=== PATIENT | female | born 1955 | race Caucasian/White ===

== ENCOUNTER → 2023-08-25 08:24 | Outpatient (REF) | payer MEDICARE, OTHER, SELFPAY | LOC: WDC 08:24 | PROVIDERS: ATTENDING PHYSICIAN Obstetrics & Gynecology; FAMILY PHYSICIAN Student in an Organized Health Care Education/Training Program | DX: Z12.31 Encounter for screening mammogram for malignant neoplasm of breast (principal) | CPT/HCPCS: 77063; 77067 ==

== ENCOUNTER → 2023-09-08 15:07 | Outpatient (REF) | payer MEDICARE, OTHER, SELFPAY | LOC: RAD 15:07 | PROVIDERS: ATTENDING PHYSICIAN Internal Medicine | DX: R60.0 Localized edema (principal) | CPT/HCPCS: 93971 ==

== ENCOUNTER → 2023-10-18 07:04 | Outpatient (REF) | payer MEDICARE, OTHER, SELFPAY ==
[2023-10-18] MEDS: LEXISCAN 0.400000000000000022 MG IV (09:26)
[2023-10-18 11:53] LABS: % Basophils 0.8 % (0-2); % Eosinophils 3.3 % (0-6); % Immature Granulocytes 0.2 % (0-0.5); % Lymphocytes 31.2 % (20.5-51.1); % Monocytes 8.9 % (1.7-9.3); % Neutrophils 55.6 % (42.2-75.2); Absolute Basophils 0.1 10^3/uL (0-0.2); Absolute Eosinophils 0.3 10^3/uL (0-0.7); Absolute Lymphocytes 2.8 10^3/uL (1.2-3.4); Absolute Monocytes 0.8 10^3/uL (0.1-0.6); Hematocrit 39.9 % (37.0-47.0); Mean Corp Hgb Conc. 32.6 g/dL (33.0-37.0); Mean Corpuscular Hgb 30.2 pg (27.0-31.0); Mean Corpuscular Volume 92.6 fL (81.0-99.0); Mean Platelet Volume 9.5 fL (7.4-10.4); Nucleated Red Blood Cells % 0 %; Platelet Count 345 10^3/uL (130-400); Red Blood Cell Count 4.31 10^6/uL (4.20-5.40); Red Cell Dist. Width 15.2 % (11.5-14.5)
[2023-10-18 13:47] LABS: ALT (SGPT) 22 U/L (0-35); AST (SGOT) 35 U/L (14-36); Albumin 4.6 g/dl (3.5-5.0); Alkaline Phosphatase 80 U/L (38-126); Blood Urea Nitrogen 21 mg/dl (7-17); Calcium 10.5 mg/dl (8.4-10.2); Carbon Dioxide 29 mmol/L (22-30); Chloride 99 mmol/L (98-107); Glucose 102 mg/dl (70-99); Potassium 4.5 mmol/L (3.5-5.1); Sodium 142 mmol/L (135-145); Total Bilirubin 0.6 mg/dl (0.2-1.3); Total Protein 7.3 g/dl (6.3-8.2); eGFR > 60.00
[2023-10-18 14:19] LABS: TSH Reflex To Free T4 3.98 uIU/ml (0.47-4.68)
== END ==
LOC: RCS 07:04
PROVIDERS: ATTENDING PHYSICIAN Internal Medicine Cardiovascular Disease; FAMILY PHYSICIAN Student in an Organized Health Care Education/Training Program; REFERRING PHYSICIAN Orthopaedic Surgery Sports Medicine
DX: I25.10 Atherosclerotic heart disease of native coronary artery without angina pectoris (principal); E78.5 Hyperlipidemia, unspecified; I48.0 Paroxysmal atrial fibrillation; E78.00 Pure hypercholesterolemia, unspecified; I10 Essential (primary) hypertension; Z01.818 Encounter for other preprocedural examination
CPT/HCPCS: 36415; 78452; 80053; 84443; 85025; 93017; A9500; J2785

== ENCOUNTER → 2023-12-27 07:51 | Outpatient (REF) | payer MEDICARE, OTHER, SELFPAY | LOC: MRI 3T 07:51 | PROVIDERS: ATTENDING PHYSICIAN Student in an Organized Health Care Education/Training Program | DX: R41.3 Other amnesia (principal); R26.89 Other abnormalities of gait and mobility; R42 Dizziness and giddiness | CPT/HCPCS: 70553; A9575 ==

== ENCOUNTER → 2024-01-17 14:43 | Outpatient (REF) | payer MEDICARE, OTHER, SELFPAY | LOC: CLAB 14:43 | PROVIDERS: ATTENDING PHYSICIAN Student in an Organized Health Care Education/Training Program; REFERRING PHYSICIAN Specialist | DX: K11.8 Other diseases of salivary glands (principal); N62 Hypertrophy of breast | CPT/HCPCS: 76536 ==

== ENCOUNTER → 2024-01-26 11:51 | Outpatient (REF) | payer MEDICARE, OTHER, SELFPAY | LOC: RAD 11:51 | PROVIDERS: ATTENDING PHYSICIAN Student in an Organized Health Care Education/Training Program; REFERRING PHYSICIAN Internal Medicine Gastroenterology | DX: K59.00 Constipation, unspecified (principal) | CPT/HCPCS: 74018 ==

== ENCOUNTER → 2024-03-12 10:33 | Outpatient (REF) | payer MEDICARE, OTHER, SELFPAY | LOC: RAD 10:33 | PROVIDERS: ATTENDING PHYSICIAN Internal Medicine Hematology & Oncology; FAMILY PHYSICIAN Student in an Organized Health Care Education/Training Program | DX: Z87.891 Personal history of nicotine dependence (principal) | CPT/HCPCS: 71271 ==

== ENCOUNTER → 2024-03-21 08:09 | Outpatient (REF) | payer MEDICARE, OTHER, SELFPAY ==
[2024-03-21 08:59] LABS: % Basophils 0.7 % (0-2); % Eosinophils 3.3 % (0-6); % Immature Granulocytes 0.3 % (0-0.5); % Lymphocytes 32.3 % (20.5-51.1); % Monocytes 10.5 % (1.7-9.3); % Neutrophils 52.9 % (42.2-75.2); Absolute Basophils 0.1 10^3/uL (0-0.2); Absolute Eosinophils 0.2 10^3/uL (0-0.7); Absolute Lymphocytes 2.2 10^3/uL (1.2-3.4); Absolute Monocytes 0.7 10^3/uL (0.1-0.6); Absolute Neutrophils 3.6 10^3/uL (1.4-6.5); Hematocrit 36.7 % (37.0-47.0); Hemoglobin 11.8 g/dL (12.0-16.0); Mean Corp Hgb Conc. 32.2 g/dL (33.0-37.0); Mean Corpuscular Hgb 29.9 pg (27.0-31.0); Mean Corpuscular Volume 93.1 fL (81.0-99.0); Mean Platelet Volume 9.6 fL (7.4-10.4); Nucleated Red Blood Cells % 0 %; Platelet Count 265 10^3/uL (130-400); Red Blood Cell Count 3.94 10^6/uL (4.20-5.40); Red Cell Dist. Width 17.1 % (11.5-14.5); White Blood Cell Count 6.9 10^3/uL (4.8-10.8)
[2024-03-21 09:29] LABS: C-Reactive Protein < 5.00 mg/L (0.0-10.00)
[2024-03-21 10:07] LABS: Ferritin 57.8 ng/ml (11.1-264.0)
[2024-03-21 10:08] LABS: Iron 69 ug/dl (37-170)
[2024-03-21 10:19] LABS: Percent Saturation 19 % (20-50); Total Iron Binding Capacity 352 ug/dl (265-497)
[2024-03-21 10:42] LABS: Erythrocyte Sed Rate 23 mm/hour (0-20)
== END ==
LOC: REG 08:09
PROVIDERS: ATTENDING PHYSICIAN Internal Medicine Hematology & Oncology; FAMILY PHYSICIAN Student in an Organized Health Care Education/Training Program; REFERRING PHYSICIAN Orthopaedic Surgery Sports Medicine
DX: Z96.652 Presence of left artificial knee joint (principal); I82.402 Acute embolism and thrombosis of unspecified deep veins of left lower extremity; R53.82 Chronic fatigue, unspecified; D50.9 Iron deficiency anemia, unspecified
CPT/HCPCS: 36415; 82728; 83540; 83550; 85025; 85652; 86140

== ENCOUNTER → 2024-03-28 11:28 | Outpatient (REF) | payer MEDICARE, OTHER, SELFPAY ==
[2024-03-28 11:54] LABS: % Basophils 0.8 % (0-2); % Eosinophils 4.8 % (0-6); % Immature Granulocytes 0.5 % (0-0.5); % Lymphocytes 31.2 % (20.5-51.1); % Monocytes 9.2 % (1.7-9.3); % Neutrophils 53.5 % (42.2-75.2); Absolute Basophils 0.1 10^3/uL (0-0.2); Absolute Eosinophils 0.4 10^3/uL (0-0.7); Absolute Lymphocytes 2.4 10^3/uL (1.2-3.4); Absolute Monocytes 0.7 10^3/uL (0.1-0.6); Absolute Neutrophils 4.1 10^3/uL (1.4-6.5); Hemoglobin 12.2 g/dL (12.0-16.0); Mean Corp Hgb Conc. 32.1 g/dL (33.0-37.0); Mean Corpuscular Hgb 29.3 pg (27.0-31.0); Mean Corpuscular Volume 91.1 fL (81.0-99.0); Nucleated Red Blood Cells % 0 %; Platelet Count 322 10^3/uL (130-400); Red Blood Cell Count 4.17 10^6/uL (4.20-5.40); Red Cell Dist. Width 17.2 % (11.5-14.5); White Blood Cell Count 7.6 10^3/uL (4.8-10.8)
== END ==
LOC: REG 11:28
PROVIDERS: ATTENDING PHYSICIAN Internal Medicine Hematology & Oncology; FAMILY PHYSICIAN Student in an Organized Health Care Education/Training Program
DX: I82.402 Acute embolism and thrombosis of unspecified deep veins of left lower extremity (principal); R53.82 Chronic fatigue, unspecified; D50.9 Iron deficiency anemia, unspecified
CPT/HCPCS: 36415; 85025

== ENCOUNTER → 2024-04-06 07:16 | Outpatient (REF) | payer MEDICARE, OTHER, SELFPAY ==
[2024-04-06 08:10] LABS: % Eosinophils 4.1 % (0-6); % Immature Granulocytes 0.6 % (0-0.5); % Lymphocytes 35.2 % (20.5-51.1); % Neutrophils 49.1 % (42.2-75.2); Absolute Basophils 0.1 10^3/uL (0-0.2); Absolute Eosinophils 0.3 10^3/uL (0-0.7); Absolute Immature Granulocytes 0.1 10^3/uL (0-0.05); Absolute Lymphocytes 2.8 10^3/uL (1.2-3.4); Absolute Monocytes 0.8 10^3/uL (0.1-0.6); Absolute Neutrophils 3.8 10^3/uL (1.4-6.5); Hematocrit 36.1 % (37.0-47.0); Hemoglobin 11.4 g/dL (12.0-16.0); Mean Corp Hgb Conc. 31.6 g/dL (33.0-37.0); Mean Corpuscular Hgb 29.4 pg (27.0-31.0); Mean Platelet Volume 9.3 fL (7.4-10.4); Nucleated Red Blood Cells % 0 %; Platelet Count 288 10^3/uL (130-400); Red Blood Cell Count 3.88 10^6/uL (4.20-5.40); Red Cell Dist. Width 17.4 % (11.5-14.5); White Blood Cell Count 7.8 10^3/uL (4.8-10.8)
[2024-04-06 08:36] LABS: ALT (SGPT) 17 U/L (0-35); AST (SGOT) 26 U/L (14-36); Albumin 4.3 g/dl (3.5-5.0); Alkaline Phosphatase 71 U/L (38-126); Amylase 73 U/L (30-110); Blood Urea Nitrogen 23 mg/dl (7-17); Calcium 9.7 mg/dl (8.4-10.2); Carbon Dioxide 29 mmol/L (22-30); Chloride 101 mmol/L (98-107); Direct Bilirubin 0.3 mg/dl (0.0-0.4); Glucose 99 mg/dl (70-99); HDL Cholesterol 72 mg/dl; LDL Cholesterol, Calculated 58 mg/dl; Lipase 137 U/L (23-300); Potassium 4.8 mmol/L (3.5-5.1); Sodium 142 mmol/L (135-145); Total Bilirubin 0.5 mg/dl (0.2-1.3); Total Cholesterol 152 mg/dl (50-199); Total Protein 6.5 g/dl (6.3-8.2); Triglyceride 113 mg/dl (10-149); Very Low Density Lipoprotein 22 mg/dl (0-30); eGFR > 60.00
[2024-04-06 08:56] LABS: TSH 4.84 uIU/ml (0.47-4.68)
[2024-04-06 09:00] LABS: Depakane 70.5 ug/ml (50.0-120.0)
== END ==
LOC: REG 07:16
PROVIDERS: ATTENDING PHYSICIAN Psychiatry & Neurology Psychiatry; FAMILY PHYSICIAN Student in an Organized Health Care Education/Training Program
DX: F41.1 Generalized anxiety disorder (principal); F31.9 Bipolar disorder, unspecified; E03.9 Hypothyroidism, unspecified; E78.5 Hyperlipidemia, unspecified
CPT/HCPCS: 36415; 80053; 80061; 80164; 82150; 82248; 83690; 84443; 85025

== ENCOUNTER → 2024-04-16 09:25 | Outpatient (REF) | payer MEDICARE, OTHER, SELFPAY | LOC: DHVS 09:25 | PROVIDERS: ATTENDING PHYSICIAN Surgery Vascular Surgery; FAMILY PHYSICIAN Student in an Organized Health Care Education/Training Program | DX: I77.9 Disorder of arteries and arterioles, unspecified (principal) | CPT/HCPCS: 93922; 93925; 93978 ==

== ENCOUNTER 2024-05-25 11:23 | Emergency (ER) | payer MEDICARE, OTHER, SELFPAY ==
[2024-05-25 11:25] VITALS: BP 114/71
[2024-05-25 11:26] VITALS: BP 114/71; BMI 28.9
[2024-05-25 11:44] LABS: % Basophils 0.5 % (0-2); % Eosinophils 1.5 % (0-6); % Immature Granulocytes 0.7 % (0-0.5); % Neutrophils 60.3 % (42.2-75.2); Absolute Eosinophils 0.1 10^3/uL (0-0.7); Absolute Immature Granulocytes 0.1 10^3/uL (0-0.05); Absolute Monocytes 0.8 10^3/uL (0.1-0.6); Absolute Neutrophils 4.5 10^3/uL (1.4-6.5); Hematocrit 41.8 % (37.0-47.0); Hemoglobin 13.8 g/dL (12.0-16.0); Mean Corpuscular Hgb 31.7 pg (27.0-31.0); Mean Corpuscular Volume 96.1 fL (81.0-99.0); Mean Platelet Volume 9.7 fL (7.4-10.4); Nucleated Red Blood Cells % 0 %; Platelet Count 204 10^3/uL (130-400); Red Blood Cell Count 4.35 10^6/uL (4.20-5.40); Red Cell Dist. Width 15.3 % (11.5-14.5); White Blood Cell Count 7.5 10^3/uL (4.8-10.8)
[2024-05-25 12:02] LABS: ALT (SGPT) 17 U/L (0-35); AST (SGOT) 25 U/L (14-36); Albumin 4.3 g/dl (3.5-5.0); Alkaline Phosphatase 52 U/L (38-126); Blood Urea Nitrogen 28 mg/dl (7-17); Calcium 9.7 mg/dl (8.4-10.2); Carbon Dioxide 21 mmol/L (22-30); Chloride 106 mmol/L (98-107); Estimated Creatinine Clearance 52 ml/min; Glucose 112 mg/dl (70-99); Sodium 141 mmol/L (135-145); Total Bilirubin 0.5 mg/dl (0.2-1.3); Total Protein 6.6 g/dl (6.3-8.2); eGFR > 60.00
[2024-05-25] MEDS: NSS 1000 IV (12:29)
--- NOTE | 2024-05-25 12:44 | ED.GENMED ---
History of Present Illness
General
Chief Complaint: Fainting/Passed Out
Time Seen by Provider: 05/25/24 11:36
History of Present Illness
History of Present Illness:
69-year-old female with history of bipolar disorder, COPD, hypertension, hyperlipidemia presenting to the emergency department after a syncopal episode. Patient had witnessed syncopal episode at the [employer] prior to arrival. Patient allegedly fell to
the ground, however witnessed, without head strike. Patient notes prior to episode, she felt lightheaded like she was going to pass out. Denies prodromal chest pain or difficulty breathing. Denies passing out in the past, however did not eat or
drink anything this morning prior to going to the [employer]. Presently reporting fatigue, otherwise denies chest pain, difficulty breathing, abdominal pain, fever or recent illness, weakness or numbness to extremities. She denies additional acute
medical complaints
Past History
Past History
ED Past Medical History: Arrthythmia (afib), COPD, GERD, HTN, Hypercholesterolemia, Psychiatric (Bipolar disorder) and Other (Fibromyalgia,' Vascular problems'); Negative Asthma or NIDDM
ED Past Surgical History: Appendectomy, Cholecystectomy, Gynecological (Total Hysterectomy) and Other (Clot removed form right leg, Numbness from knee up to thigh constant)
Social History
Tobacco: Former smoker
Alcohol: Occasional
Drug: None
Personal:
Living: alone
Employment: Employed
Family History
Family History: Other
Phy Exam
Physical Exam
Physical Exam:
General: Well-appearing, nontoxic and in no acute distress, dry mucus membranes
HEENT: protecting airway
Neck: appears supple
CV: Normal heart rate, regular rhythm
Resp: No accessory muscle use, no increased work of breathing, lungs clear to auscultation bilaterally
Abd: Soft and non-distended, no tenderness to palpation
Extremities: No deformities, no swelling, no erythema, pulses and sensation intact
Neuro: alert, no focal neurologic deficit
: deferred
Rectal: deferred
Psych: Normal affect
Skin: Intact
Course
Orders/Labs/Results
Orders:
Orders
05/25/24 11:25
EKG [Electrocardiogram (*1)] Urgent
Reason for Study: Vertigo / Dizzy
EKG- Treatment ONCE
05/25/24 11:28
CBC/With Diff [Complete Blood Count/With Diff] Urgent
CMP [Comprehensive Metabolic Panel] Urgent
05/25/24 12:08
0.9% Sodium Chloride 1000 ml [Nss] 1,000 ml IV BOLUS
05/25/24 12:20
Troponin I Urgent
Abnormal Lab Results
05/25/24
11:28
MCH 31.7 H pg
(27.0-31.0)
RDW 15.3 H %
(11.5-14.5)
Abs Immat Gran (auto) 0.1 H 10^3/uL
(0-0.05)
Absolute Monos (auto) 0.8 H 10^3/uL
(0.1-0.6)
Immature Gran % 0.7 H %
(0-0.5)
Monocytes % 10.0 H %
(1.7-9.3)
Carbon Dioxide 21 L mmol/L
(22-30)
BUN 28 H mg/dl
(7-17)
Glucose 112 H mg/dl
(70-99)
05/25/24 11:28
05/25/24 11:28
Vital Signs
Initial and Last Documented VS:
Initial Vital Signs
BP
114/71
05/25/24 11:25
Last Documented Vital Signs
Temp Pulse Resp BP Pulse Ox
97.6 F 82 15 114/71 89
05/25/24 11:26 05/25/24 12:46 05/25/24 12:52 05/25/24 11:26 05/25/24 12:46
MDM/Problems Addressed
MDM/Problems Addressed:
69-year-old female with history of bipolar disorder, hypertension, hyperlipidemia, COPD presenting after syncopal episode. Vital signs on arrival are normal.
On exam patient is well-appearing, no acute distress or discomfort. Overall benign cardiac, pulmonary, neurologic exam. She is afebrile, nontoxic. She does have dry mucous membranes. EKG obtained, nonischemic, no arrhythmia. Lower suspicion for
acute cardiac event, without prodromal cardiac symptoms. Suspect possible vasovagal quality to symptoms, did not eat or drink anything today, appears dry on exam. Plan for screening laboratory analysis. Will administer IV fluids and reassess for
improvement.
13:30 - Labs are unremarkable. On reassessment after fluids and oral hydration, patient is reporting symptom improvement. Patient ambulated steadily. At this time feel that she is stable for discharge. Strict return precautions communicated and
patient verbalized understanding
*EKG
Interpreted by ED Provider?: Yes
EKG Intrepretation Date: 05/25/24
EKG Intrepretation Time: 12:48
Interpretation: normal
Comparison EKG: no changes (06/08/23)
Heart Rate: 66
Rate: normal
Rhythm: sinus
[place]: normal axis
Interval: normal interval
QRS Pattern: normal QRS
Ischemia: no ischemia
*Critical Care Note
Total Time (30-74mins, 75-104mins- exclusive of procedures): Not Applicable
ED Attending Note
-
Portions of this chart may have been created with voice recognition software.� Occasional wrong word or��sound alike� substitutions may have occurred due to the inherent limitations of voice recognition software.
Discharge Plan
Departure
Prescriptions:
No Action
olanzapine 5 mg Tablet
5 mg PO BID Qty: 0
pantoprazole 40 MG tablet,delayed release (DR/EC)
40 mg PO DAILY
finasteride 5 MG tablet
5 mg PO DAILY
bupropion HCl 200 MG tablet sustained-release 12 hr
200 mg PO DAILY
sennosides [senna] 1 TABLET tablet
2 tab PO DAILY
amlodipine 5 mg Tablet
5 mg PO DAILY
rosuvastatin [Crestor] 40 mg Tablet
40 mg PO DAILY
Eliquis 5 mg Tablet
5 mg PO BID
alendronate 70 mg Tablet
70 mg PO WE
clonazepam 0.5 mg Tablet
0.5 mg PO DAILY
Patient Comments:
04/28/2023: last filled 04/25/23, 90 tabs for 30 days from [facility]
clonazepam 0.5 mg Tablet
1 mg PO HS
Patient Comments:
04/28/2023: last filled 04/25/23, 90 tabs for 30 days from [facility]
polyethylene glycol 3350 [Miralax] 17 gram/dose Powder
4 g PO QPM
Rx Instructions:
2 teaspoons daily
fluoxetine 20 mg capsule
20 mg PO DAILY
oxycodone 10 mg tablet
10 mg PO DAILY
Patient Comments:
04/28/2023: last filled 04/13/23, 75 tabs for 30 days from [facility]
Rx Instructions:
Can take up to 3x daily
lurasidone 120 mg tablet
120 mg PO QPM
Patient Comments:
04/28/2023: last filled 02/24/23, 90 tabs for 90 days from [facility]
gabapentin 100 mg capsule
300 mg PO TID
alprazolam 1 mg tablet
1 mg PO HS PRN (Reason: anxiety) Qty: 4 0RF
Referrals:
Shirley Marx MD [Family Provider] -
Interventions
Interventions:
*Risk Screen - Suicide Last Done: 05/25/24 11:26
*General Assessment Last Done: 05/25/24 11:26
*Neglect/Abuse Screening Last Done: 05/25/24 11:26
ED- Fall Risk Assessment Last Done: 05/25/24 11:31
*ED COVID-19 Vaccine History Last Done: 05/25/24 11:26
ED- Cardiac Assessment Last Done: 05/25/24 11:31
ED- Neurological Assessment Last Done: 05/25/24 11:31
Discharge Date and Time
Print Language: YI
[2024-05-25 12:54] LABS: Troponin I < 0.012 ng/ml
== END 2024-05-25 14:40 | disposition home or self-care (01) ==
LOC: EMR 11:23
PROVIDERS: EMERGENCY PHYSICIAN Student in an Organized Health Care Education/Training Program; FAMILY PHYSICIAN Student in an Organized Health Care Education/Training Program
DX: R55 Syncope and collapse (principal); F31.9 Bipolar disorder, unspecified; J44.9 Chronic obstructive pulmonary disease, unspecified; I10 Essential (primary) hypertension; E78.00 Pure hypercholesterolemia, unspecified; I48.91 Unspecified atrial fibrillation; K21.9 Gastro-esophageal reflux disease without esophagitis; M79.7 Fibromyalgia; W19.XXXA Unspecified fall, initial encounter; Z87.891 Personal history of nicotine dependence; Z90.49 Acquired absence of other specified parts of digestive tract; Z90.710 Acquired absence of both cervix and uterus
CPT/HCPCS: 99283; 96360; 80053; 84484; 85025; 93005

== ENCOUNTER 2024-05-26 04:26 | Observation (INO) | payer MEDICARE, OTHER, SELFPAY ==
[2024-05-25 22:40] VITALS: BP 130/73
[2024-05-25 22:41] VITALS: BP 130/73
[2024-05-25 23:02] VITALS: BP 143/84
[2024-05-25 23:16] VITALS: BMI 30.2
[2024-05-26] VITALS (17 sets, daily range): BP systolic 91–165; BP diastolic 62–95; PULSE 61–85; O2SAT 98; BMI 28.6
--- NOTE | 2024-05-26 00:32 | ED.GENMED ---
History of Present Illness
<KHADRA Bejarano - Last Filed: 05/26/24 05:59>
General
Chief Complaint: Fainting Sensation
Source: patient
Exam Limitations: none
Time Seen by Provider: 05/26/24 00:15
History of Present Illness
History of Present Illness:
Patient is a 69yo F w/ hx of HTN, HLD, COPD, MVP, a fib, and heart murmur presents to the ED via EMS for fainting sensation. She was at ED earlier today after fainting [place] bank. Dx w/ dehydration and felt much better after fluids. Came back to ED due
to sensation that she was going to pass out again but no LOC. She reports eating and drinking water during the day but unsure how much. Is thirsty right now. She is very sleepy during exam but awoken easily. States she is more fatigued than earlier
today after passing out. Admits to dizziness and lightheadedness. Denies CONN, chest pain, SOB, palpitations, and N/V. Denies any recent med changes.
Past History
<KHADRA Bejarano - Last Filed: 05/26/24 05:59>
Past History
ED Past Medical History: Arrthythmia (afib), COPD, GERD, HTN, Hypercholesterolemia, Psychiatric (Bipolar disorder) and Other (Fibromyalgia,' Vascular problems'); Negative Asthma or NIDDM
ED Past Surgical History: Appendectomy, Cholecystectomy, Gynecological (Total Hysterectomy) and Other (Clot removed form right leg, Numbness from knee up to thigh constant)
Social History
Tobacco: Former smoker
Alcohol: Occasional
Drug: None
Personal:
Living: alone
Employment: Employed
Family History
Family History: Other
Review of Systems
<KHADRA Bejarano - Last Filed: 05/26/24 05:59>
Review of Systems
Constitutional: Reports fatigue and chills; Denies fever
EENT: Denies sore throat or runny nose
Respiratory: Denies cough or trouble breathing
Cardiac: Denies chest pain or palpitations
ABD/GI: Denies abdominal pain, nausea, vomiting, diarrhea or constipated
: Denies dysuria
Musculoskeletal: Denies joint pain, muscle pain or neck pain
Neurological: Reports dizzy; Denies headache
Phy Exam
<Kiesha Ag [facility] - Last Filed: 05/26/24 05:59>
General Physical Exam
General Presentation: no apparent distress
General age: appears stated age
General Skin: warm and dry
General Habitus: elderly
General Mental: other (sleepy)
Cardiovascular Exam
Cardiovascular Exam: no murmur and bradycardia
Pulmonary Exam
Pulmonary Exam: lungs clear and no respiratory distress
Neurological Exam
Neurological Exam: alert, oriented x3, no motor deficits, no sensory deficits and speech normal
Musculoskeletal Exam
Musculoskeletal Exam: edema (mild BL LE edema)
Course
<Kiesha Ag [facility] - Last Filed: 05/26/24 05:59>
Orders/Labs/Results
Orders:
Orders
05/25/24 22:47
EKG [Electrocardiogram (*1)] Urgent
Reason for Study: Syncope
EKG- Treatment ONCE
05/26/24 00:45
Complete Blood Count/With Diff Urgent
Comprehensive Metabolic Panel Urgent
Cortisol, Random Urgent
Comment: ADD ON
Depakane Urgent
Comment: ADD ON
Free T4 Urgent
Comment: ADD ON
TSH Urgent
Comment: ADD ON
05/26/24 01:01
Add On- LAB Urgent
Tests Added?: depakene, tsh
Orthostatic VS- Treatment ONCE
05/26/24 01:03
CT Head W/o Iv Contrast Urgent
Comment:
Reason For Exam: weakenss elquids
05/26/24 01:07
Troponin I Urgent
05/26/24 02:53
Add On- LAB Urgent
Tests Added?: free t4, cortisol
05/26/24 04:15
Admit/Transfer Patient As Directed
Co-Sign Provider:
Level of Care: Observation services
Assign to:: Telemetry
Physician / Group: hospitalist
Diagnosis: presyncope
Reason for Telemetry: Syncope
Date to Stop Telemetry: 05/28/24
Time to Stop Telemetry: 11:00
PRN Pain Medication Management As Directed
May give lesser potent ordered pain med per pt: Yes
preference::
Protocol:: Medication orders for pain may be administered in a
manner that supports deferring to patient preference
when the pt is:
- Requesting an ordered lesser potent pain medication.
Least to most potent pain medications are defined
as: acetaminophen < NSAID < tramadol < opioids
(morphine, oxycodone, hydromorphone).
- Requesting a lesser dose of the same medication IF
ORDERED.
- Requesting a less intrusive route of administration
if both routes are prescribed by the provider (PO <
IV).
05/26/24 04:16
Code Status As Directed
Resuscitation Status: Full Code
05/26/24 08:00
Amlodipine [Norvasc] 5 mg PO DAILY
Apixaban [Eliquis] 5 mg PO BID
Clonazepam [Klonopin] 0.5 mg PO DAILY
Fluoxetine HCl [Prozac] 20 mg PO DAILY
Olanzapine [Zyprexa] 5 mg PO BID
Pantoprazole [Protonix] 40 mg PO BID
Rosuvastatin Calcium [Crestor] 40 mg PO DAILY
bupropion HCl 200 mg PO DAILY
05/26/24 18:00
Polyethylene Glycol 3350 [Gavilax] 4 gm PO QPM
lurasidone 120 mg PO QPM
05/26/24 22:00
Bisacodyl [Dulcolax] 5 mg PO HS
Clonazepam [Klonopin] 0.5 mg PO HS
05/28/24 11:00
DC Protocol for Telemetry ONCE
Abnormal Lab Results
05/26/24
00:45
WBC 11.9 H 10^3/uL
(4.8-10.8)
RBC 3.86 L 10^6/uL
(4.20-5.40)
MCH 32.1 H pg
(27.0-31.0)
MCHC 32.9 L g/dL
(33.0-37.0)
RDW 15.1 H %
(11.5-14.5)
Abs Immat Gran (auto) 0.1 H 10^3/uL
(0-0.05)
Absolute Neuts (auto) 7.1 H 10^3/uL
(1.4-6.5)
Absolute Monos (auto) 1.1 H 10^3/uL
(0.1-0.6)
BUN 33 H mg/dl
(7-17)
Creatinine 1.2 H mg/dL
(0.6-1.0)
Total Protein 6.2 L g/dl
(6.3-8.2)
TSH 8.64 H uIU/ml
(0.47-4.68)
05/26/24 00:45
05/26/24 00:45
Vital Signs
Initial and Last Documented VS:
Initial Vital Signs
Temp Pulse Resp BP Pulse Ox
97.6 F 61 12 130/73 99
05/25/24 22:40 05/25/24 22:40 05/25/24 22:40 05/25/24 22:40 05/25/24 22:40
Last Documented Vital Signs
Temp Pulse Resp BP Pulse Ox
96.6 F L 60 19 104/82 97
05/26/24 02:58 05/26/24 05:30 05/26/24 05:30 05/26/24 05:00 05/26/24 03:45
<Guicho Arrington, DO - Last Filed: 05/26/24 02:55>
Orders/Labs/Results
Orders:
Orders
05/25/24 22:47
EKG [Electrocardiogram (*1)] Urgent
Reason for Study: Syncope
EKG- Treatment ONCE
05/26/24 00:45
Complete Blood Count/With Diff Urgent
Comprehensive Metabolic Panel Urgent
Cortisol, Random Urgent
Comment: ADD ON
Depakane Urgent
Comment: ADD ON
Free T4 Urgent
Comment: ADD ON
TSH Urgent
Comment: ADD ON
05/26/24 01:01
Add On- LAB Urgent
Tests Added?: depakene, tsh
Orthostatic VS- Treatment ONCE
05/26/24 01:03
CT Head W/o Iv Contrast Urgent
Comment:
Reason For Exam: weakenss elquids
05/26/24 01:07
Troponin I Urgent
05/26/24 02:53
Add On- LAB Urgent
Tests Added?: free t4, cortisol
05/26/24 04:15
Admit/Transfer Patient As Directed
Co-Sign Provider:
Level of Care: Observation services
Assign to:: Telemetry
Physician / Group: hospitalist
Diagnosis: presyncope
Reason for Telemetry: Syncope
Date to Stop Telemetry: 05/28/24
Time to Stop Telemetry: 11:00
PRN Pain Medication Management As Directed
May give lesser potent ordered pain med per pt: Yes
preference::
Protocol:: Medication orders for pain may be administered in a
manner that supports deferring to patient preference
when the pt is:
- Requesting an ordered lesser potent pain medication.
Least to most potent pain medications are defined
as: acetaminophen < NSAID < tramadol < opioids
(morphine, oxycodone, hydromorphone).
- Requesting a lesser dose of the same medication IF
ORDERED.
- Requesting a less intrusive route of administration
if both routes are prescribed by the provider (PO <
IV).
05/26/24 04:16
Code Status As Directed
Resuscitation Status: Full Code
05/26/24 08:00
Amlodipine [Norvasc] 5 mg PO DAILY
Apixaban [Eliquis] 5 mg PO BID
Clonazepam [Klonopin] 0.5 mg PO DAILY
Fluoxetine HCl [Prozac] 20 mg PO DAILY
Olanzapine [Zyprexa] 5 mg PO BID
Pantoprazole [Protonix] 40 mg PO BID
Rosuvastatin Calcium [Crestor] 40 mg PO DAILY
bupropion HCl 200 mg PO DAILY
05/26/24 18:00
Polyethylene Glycol 3350 [Gavilax] 4 gm PO QPM
lurasidone 120 mg PO QPM
05/26/24 22:00
Bisacodyl [Dulcolax] 5 mg PO HS
Clonazepam [Klonopin] 0.5 mg PO HS
05/28/24 11:00
DC Protocol for Telemetry ONCE
Abnormal Lab Results
05/26/24
00:45
WBC 11.9 H 10^3/uL
(4.8-10.8)
RBC 3.86 L 10^6/uL
(4.20-5.40)
MCH 32.1 H pg
(27.0-31.0)
MCHC 32.9 L g/dL
(33.0-37.0)
RDW 15.1 H %
(11.5-14.5)
Abs Immat Gran (auto) 0.1 H 10^3/uL
(0-0.05)
Absolute Neuts (auto) 7.1 H 10^3/uL
(1.4-6.5)
Absolute Monos (auto) 1.1 H 10^3/uL
(0.1-0.6)
BUN 33 H mg/dl
(7-17)
Creatinine 1.2 H mg/dL
(0.6-1.0)
Total Protein 6.2 L g/dl
(6.3-8.2)
TSH 8.64 H uIU/ml
(0.47-4.68)
05/26/24 00:45
05/26/24 00:45
Vital Signs
Initial and Last Documented VS:
Initial Vital Signs
Temp Pulse Resp BP Pulse Ox
97.6 F 61 12 130/73 99
05/25/24 22:40 05/25/24 22:40 05/25/24 22:40 05/25/24 22:40 05/25/24 22:40
Last Documented Vital Signs
Temp Pulse Resp BP Pulse Ox
96.6 F L 60 19 104/82 97
05/26/24 02:58 05/26/24 05:30 05/26/24 05:30 05/26/24 05:00 05/26/24 03:45
<Kiesha Ag [facility] - Last Filed: 05/26/24 05:59>
MDM/Problems Addressed
Differential Diagnosis Includes:
Patient is very sleepy. She does not answer w/ much detail but does respond. She is dizzy, admits to some SOB, and is anxious about situation. Abnormal EKG showing bradycardia and sinus arrhythmia. Concerned for cardiac issue given hx and abnormal
EKG. Also considering polypharmacy or medication interaction given extensive med list w/ multiple psych meds. Also considering underlying infx or anemia. Will start basic blood work and UA.
<Guicho Arrington DO - Last Filed: 05/26/24 02:55>
MDM/Problems Addressed
Chronic conditions affecting care: Psychiatric illness
Acute Exacerbation and/or Progression of Chronic Illness: Psychiatric illness
<Guicho Arrington DO - Last Filed: 05/26/24 02:55>
*Radiology
Radiology exam reviewed: radiology read reviewed
*Pulse Oximetry
Patient hypoxic: no
*EKG
Interpreted by ED Provider?: Yes
Interpretation: abnormal
Comparison EKG: no comparison EKG present
Heart Rate: 58
Rate: normal
Rhythm: sinus
Ischemia: no ischemia
*Absence Management Consultant Interpretation
Rate: normal
Interpretation: normal
Heart Rate: 58
Rhythm: sinus
*Critical Care Note
Total Time (30-74mins, 75-104mins- exclusive of procedures): Not Applicable
Data Reviewed
Review of Other/Old Records Reveals: Labs and Records
Source: patient
<Guicho Arrington DO - Last Filed: 05/26/24 02:55>
Update Note
Update Note:
She was due to examined independently 69-year-old female history of mental illness second visit with fatigue, feels like she may pass out, here she is resting comfortably, bradycardic with is not new, labs from earlier noted will add orthostatics,
TSH, troponin CT head and urine also Depakote level
TSH noted other labs are noted will check rectal temp free T4 and cortisol
ED Attending Note
<KHADRA Bejarano - Last Filed: 05/26/24 05:59>
-
Portions of this chart may have been created with voice recognition software.� Occasional wrong word or��sound alike� substitutions may have occurred due to the inherent limitations of voice recognition software.
<Guicho Arrington, DO - Last Filed: 05/26/24 02:55>
ED Attending Note
Patient seen and examined by attending physician: Yes
I performed the substantive portion of visit, reviewed & personally made and approve the management plan that is documented in note by myself or EMY.: Yes
ED Attending Note:
Seen with student examined independently see my medical decision making above
Discharge Plan
Departure
Patient Disposition: Admit
Date of Disposition: 05/26/24
Time of Disposition: 03:11
Admit to: Telemetry
Presentation/result/management discussed w/ accepting MD/DO: Hospitalist
Patient with high blood pressure during this ER visit?: No
Condition: Fair
Covid-19: Not Applicable
Discharge Problem:
Syncope, near, Hypothermia, TSH elevation
Interventions
Interventions:
*Risk Screen - Suicide Last Done: 05/25/24 22:40
*General Assessment Last Done: 05/25/24 22:40
*Neglect/Abuse Screening Last Done: 05/25/24 22:40
ED- Fall Risk Assessment Last Done: 05/25/24 22:40
*ED COVID-19 Vaccine History Last Done: 05/25/24 22:40
*Nursing Disposition Last Done: 05/26/24 05:52
ED- Cardiac Assessment Last Done: 05/25/24 23:06
ED- Neurological Assessment Last Done: 05/25/24 23:06
Discharge Date and Time
Discharge Date/Time: 05/26/24 05:53
[2024-05-26 00:56] LABS: % Basophils 0.5 % (0-2); % Eosinophils 1.2 % (0-6); % Immature Granulocytes 0.5 % (0-0.5); % Lymphocytes 28.6 % (20.5-51.1); % Monocytes 9.3 % (1.7-9.3); % Neutrophils 59.9 % (42.2-75.2); Absolute Basophils 0.1 10^3/uL (0-0.2); Absolute Eosinophils 0.1 10^3/uL (0-0.7); Absolute Immature Granulocytes 0.1 10^3/uL (0-0.05); Absolute Lymphocytes 3.4 10^3/uL (1.2-3.4); Absolute Monocytes 1.1 10^3/uL (0.1-0.6); Absolute Neutrophils 7.1 10^3/uL (1.4-6.5); Hematocrit 37.7 % (37.0-47.0); Hemoglobin 12.4 g/dL (12.0-16.0); Mean Corp Hgb Conc. 32.9 g/dL (33.0-37.0); Mean Corpuscular Hgb 32.1 pg (27.0-31.0); Mean Corpuscular Volume 97.7 fL (81.0-99.0); Mean Platelet Volume 10.3 fL (7.4-10.4); Nucleated Red Blood Cells % 0 %; Platelet Count 198 10^3/uL (130-400); Red Blood Cell Count 3.86 10^6/uL (4.20-5.40); Red Cell Dist. Width 15.1 % (11.5-14.5); White Blood Cell Count 11.9 10^3/uL (4.8-10.8)
[2024-05-26 01:13] LABS: ALT (SGPT) 15 U/L (0-35); AST (SGOT) 23 U/L (14-36); Albumin 3.9 g/dl (3.5-5.0); Alkaline Phosphatase 53 U/L (38-126); Blood Urea Nitrogen 33 mg/dl (7-17); Calcium 9.2 mg/dl (8.4-10.2); Carbon Dioxide 25 mmol/L (22-30); Chloride 103 mmol/L (98-107); Estimated Creatinine Clearance 44 ml/min; Glucose 92 mg/dl (70-99); Potassium 4.7 mmol/L (3.5-5.1); Sodium 141 mmol/L (135-145); Total Bilirubin 0.2 mg/dl (0.2-1.3); Total Protein 6.2 g/dl (6.3-8.2); eGFR 48.39
[2024-05-26 01:39] LABS: Depakane 53.8 ug/ml (50.0-120.0)
[2024-05-26 01:46] LABS: Troponin I < 0.012 ng/ml
[2024-05-26 02:09] LABS: TSH 8.64 uIU/ml (0.47-4.68)
--- NOTE | 2024-05-26 03:50 | HPS.HSE ---
Family Physician
-
Family Physician: PHYSICIAN PRIVATE
Chief Complaint
-
Presyncope
History of Present Illness
This is a 69-year-old female who has a past medical history of proximal atrial fibrillation anticoagulation, hypertension, hyperlipidemia, COPD, DAVID not on CPAP, bipolar who presents to the emergency department after a sensation of fainting without
actually is having a fall or syncopal episode. This is a second visit after having a witnessed fall earlier in the day and brought to the emergency department.
Patient is was a fairly poor story and. She was sleepy though arousable. History was mostly yes no to questions. She was unable to provide details of initial presentation. ED chart showed that the patient had a witnessed fall while standing at a
bank. She did not strike her head. She was then brought to the emergency department. In the emergency department she was felt to be dehydrated given IV fluids. Patient felt better was able to ambulate. Labs were unremarkable. She was
discharged home.
Patient is really unable to provide much history of what she did well at home. Unclear whether she was tolerating p.o. at home. She denied having any symptoms until the event. She says she was at home unclear whether she was standing or sitting.
She felt that she was going to fall and strike her head and therefore called the ambulance to bring her to the emergency department. She denies any headache, blurry vision or double vision, darkening of the visual saucedo, neck pain, nausea,
vomiting, diarrhea, abdominal pain. She denied have any chest pain, palpitations, chest tightness or shortness of breath. She denied having any pleuritic chest pain. She denied any acute medication changes. She denied having any melena or
hematochezia. Denies dysuria, frequency.
On initial presentation to the ED again temperature was 96.6 blood pressure 120/75 and she was initially bradycardic to 55. Was not saturation was 97% on room air. ECG showed sinus bradycardia 57. She had a mild leukocytosis to 11.9, hemoglobin
and platelet counts were normal and unchanged. Troponin was negative. Electrolytes and BUN/creatinine notable for a uptrending of BUN to 33 and creatinine to 1.2. TSH was elevated at 8
Medical History
Past Medical History
Past Medical History: Reports Asthma (Paroxysmal atrial fibrillation), COPD, HTN and Hypercholesterolemia
Additional Past Medical History:
DAVID not on CPAP
Past Surgical History: Reports Appendectomy, Cholecystectomy and Gynocological (Hysterectomy)
Social History
Tobacco: Former Smoker
Alcohol: Occasional
Drug: None
Personal:
Living: Alone
Family History
Family History: Not pertinent
Allergies / Home Medications
Allergies reflects when Allergies were last updated in [employer].
Home Medications with original date entered in [employer]
Allergy/Medication List:
Allergies
Allergy/AdvReac Type Severity Reaction Status Date / Time
bacitracin Allergy Rash Verified 05/25/24 22:40
[From Neosporin
([id number])]
crab Allergy Hives Verified 05/25/24 22:40
diphenhydramine Allergy rash and Verified 05/25/24 22:40
[From Benadryl] hyperactive/hyper/manic-adverse
reaction
lamotrigine [From Lamictal] Allergy Rash Verified 05/25/24 22:40
neomycin Allergy Rash Verified 05/25/24 22:40
[From Neosporin
([id number])]
polymyxin B Allergy Rash Verified 05/25/24 22:40
[From Neosporin
([id number])]
Home Medications
bupropion HCl 200 mg tablet,12 hr sustained-release 200 mg PO DAILY Mental Health/Anxiety 09/25/21
olanzapine 5 mg tablet 5 mg PO BID Mental Health/Anxiety ##0 09/25/21
pantoprazole 40 mg tablet,delayed release 40 mg PO BID Gastrointestinal issue 09/25/21
amlodipine 5 mg tablet 5 mg PO DAILY Blood Pressure 09/14/22
apixaban 5 mg tablet (Eliquis) 5 mg PO BID Blood Clot Prevention/Tx 09/14/22
rosuvastatin 40 mg tablet (Crestor) 40 mg PO DAILY High Cholesterol 09/14/22
clonazepam 0.5 mg tablet 0.5 mg PO DAILY Mental Health/Anxiety 09/20/22
clonazepam 0.5 mg tablet 1 mg PO HS Mental Health/Anxiety 09/20/22
polyethylene glycol 3350 17 gram/dose oral powder (Miralax) 4 g PO QPM Constipation 10/01/22
fluoxetine 20 mg capsule 20 mg PO DAILY 04/28/23
lurasidone 120 mg tablet 120 mg PO QPM bipolar 04/28/23
bisacodyl 5 mg tablet,delayed release (Dulcolax (bisacodyl)) 5 mg PO HS 05/26/24
divalproex 500 mg tablet,extended release 24 hr (Depakote ER) mg PO 05/26/24
ergocalciferol (vitamin D2) 1,000 unit capsule 2,000 unit PO DAILY 05/26/24
glycopyrrolate 1 mg tablet 2 mg PO DAILY 05/26/24
oxycodone 20 mg tablet 20 mg PO DAILY 05/26/24
Review of Systems
-
History Source: Patient
Constitutional: Reports No Symptoms
EENT: Reports No Symptoms
Respiratory: Reports No Symptoms
Cardiac: Reports No Symptoms
Abdomen/GI: Reports No Symptoms
: Reports No Symptoms
Musculoskeletal: Reports No Symptoms
Skin: Reports No Symptoms
Neurological: Reports No Symptoms
Endocrine: Reports No Symptoms
Hematologic/Lymphatic: Reports No Symptoms
Psych: Reports No Symptoms
Physical Exam
Vital Signs
Vital Signs
Temp Pulse Resp BP Pulse Ox
96.6 F L 60 16 123/75 97
05/26/24 02:58 05/26/24 03:00 05/26/24 03:00 05/26/24 03:00 05/26/24 03:00
Physical Exam
General: Well Developed, No Apparent Distress, Comfortable and Other (sleepy)
HEENT: NormoCephalic, Anicteric and PERRLA
Respiratory: Clear
Cardiac: S1/S2 and Bradycardia
Breast: Deferred by me
GI: Soft, Non Tender, Non Distended and Normal Bowel Sounds
Rectal: Deferred by Provider
Genito-urinary: Deferred by me
Musculoskeletal: No Clubbing, No Cyanosis and No Edema
Skin: Warm
Neuro: AO x 3
Hematologic/Lymphatic: No Lymphadenopathy
Psych: Calm
Laboratory Results
-
05/26/24 00:45
05/26/24 00:45
Laboratory Results
Total Bilirubin 0.2 mg/dl (0.2-1.3) 05/26/24 00:45
AST 23 U/L (14-36) 05/26/24 00:45
ALT 15 U/L (0-35) 05/26/24 00:45
Alkaline Phosphatase 53 U/L (38-126) 05/26/24 00:45
Troponin I < 0.012 ng/ml 05/26/24 01:07
Impression/Plan
-
IMPRESSION:
69 y.o female presenting with a sensation of being about to fall but no syncope. She presented earlier in the day following a witnessed fall and was evaluated in ED and discharged after IV fluids and repeat examination. She now comes in this
evening with a presyncopal feeling. No witnessed event. No other acute symptoms. Temp was 96.6 and she was slightly bradycardic. Otherwise stable vitals, negative trop x 2, normal cbc, lytes. Cr is 1.2 and BUN is 33. CT head is negative.
PLAN:
1. Presyncope - Has had recent normal stress test, negative head ct, stable vitals and has sinus bradycardia. Normal free t4 in the past with boderline elevated tsh, now elevated tsh.
- admit to telemetry obs
- monitor over 24 hours, may need follow up ambulatory monitoring
- orthostatic vital signs
- echo
- hold narcortics as tolerated
- lurasidone has orthostatic hypotension and may need to be adjusted if orthostatic
2. Hypothermia - Temp 96.7
- passive warming and re-evaluate
- checking random cortisol and free t4
- likely now hypothyroid
- warming measures prn (blanket for now)
- check u/a
3. Bradycardia - pulse 50 - 60. Baseline is usually 70 - 90. ECG w/o heart block. No beta blockade despite paroxysmal afib.
- telemetry
- elevated tsh, free t4 pending
- if normal t4, consider cardiology consult
4. pAFIB
- continue eliquis
5. DAVID -
- no cpap,prn supplemental oxygen hs
6. BIPOLAR -
- lurasidone continued
- bupropion continued
- fluoxetine continued
- depakote - unable to determine dose
DVT PPX - on apixaban
Code Status - Full Code
[2024-05-26 04:06] LABS: Free T4 1.54 ng/dl (0.78-2.19)
[2024-05-26 04:20] LABS: Cortisol, Random 5.4 ug/dl
[2024-05-26] MEDS: NSS 1000 IV (08:10)
[2024-05-26] MEDS: WELLBUTRIN SR (12 hour sustained release) 200 MG PO (08:14)
[2024-05-26] MEDS: CRESTOR 40 MG PO (08:14)
[2024-05-26] MEDS: PROZAC 20 MG PO (08:14)
[2024-05-26] MEDS: NORVASC 5 MG PO (08:14)
[2024-05-26] MEDS: KLONOPIN 0.5 MG PO (08:14)
[2024-05-26] MEDS: ELIQUIS 5 MG PO (08:14)
[2024-05-26] MEDS: PROTONIX 40 MG PO (08:14)
--- NOTE | 2024-05-26 12:27 | W.PN.UPDATE ---
Addendum entered and electronically signed by Isaac England MD 05/26/24 14:49:
asymptomatic with ambulation with therapy
additional 500 cc bolus and dc home, resume therapy tomorrow
Lurasidone stopped (orthostasis known S.E) and she will discuss with her psychiatrist Dr. Tang
Also Norvasc cut to 2.5mg
PCP f/u Tuesday
Original Note:
Update Note
Progress Note Update
Non-billable addendum
Pt admitted for pre-syncope
+ orthostatics - s/p IVF. Lurasidone stopped (orthostasis known S.E)
EKG without ischemia
TSH elevated, normal T4, with transient bradycardia and hypothermia - started levothyroxine
Patient asymptomatic with ambulation, formal PT/OT evals pending. if ok, will dc home and PCP/psych f/u
[2024-05-26 14:01] LABS: Hematocrit 41.4 % (37.0-47.0); Hemoglobin 13.2 g/dL (12.0-16.0); Mean Corp Hgb Conc. 31.9 g/dL (33.0-37.0); Mean Corpuscular Volume 100.2 fL (81.0-99.0); Mean Platelet Volume 9.6 fL (7.4-10.4); Platelet Count 200 10^3/uL (130-400); Red Blood Cell Count 4.13 10^6/uL (4.20-5.40); Red Cell Dist. Width 14.8 % (11.5-14.5); White Blood Cell Count 9.7 10^3/uL (4.8-10.8)
[2024-05-26 14:13] LABS: Blood Urea Nitrogen 21 mg/dl (7-17); Calcium 9.5 mg/dl (8.4-10.2); Carbon Dioxide 28 mmol/L (22-30); Chloride 105 mmol/L (98-107); Estimated Creatinine Clearance 57 ml/min; Glucose 68 mg/dl (70-99); Potassium 4.1 mmol/L (3.5-5.1); Sodium 143 mmol/L (135-145); eGFR > 60.00
[2024-05-26 14:22] LABS: Urine Albumin Negative (Neg - Trace); Urine Bilirubin Negative (Negative); Urine Character Clear (Clear); Urine Color Yellow; Urine Glucose Negative (Negative); Urine Ketone Negative (Negative); Urine Leukocyte Negative (Negative); Urine Nitrite Negative (Negative); Urine Occult Blood Trace (Negative); Urine Urobilinogen Negative (Neg - 1+)
[2024-05-26 14:32] LABS: Urine Mucus Few
[2024-05-26 14:33] LABS: Urine Bacteria Few (Negative); Urine Red Blood Cell 0-2 /HPF (0-2)
--- NOTE | 2024-05-26 14:49 | W.DS.TRANS ---
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
-
Discharge Instructions:
Discharge Diagnosis/Procedures orthostatic hypotension, hypothyroidism
Diet Low Cholesterol
Activity As tolerated
Bathing Restrictions None
Other Services PT,OT,VN
Instructions:
Stand-Alone Forms:
Changes to Home Medications: Yes
Discharge Medications:
DC Medications w/original date entered in [employer]
bupropion HCl 200 mg tablet,12 hr sustained-release 200 mg PO DAILY Mental Health/Anxiety 09/25/21
olanzapine 5 mg tablet 5 mg PO BID Mental Health/Anxiety ##0 09/25/21
pantoprazole 40 mg tablet,delayed release 40 mg PO BID Gastrointestinal issue 09/25/21
apixaban 5 mg tablet (Eliquis) 5 mg PO BID Blood Clot Prevention/Tx 09/14/22
rosuvastatin 40 mg tablet (Crestor) 40 mg PO DAILY High Cholesterol 09/14/22
clonazepam 0.5 mg tablet 0.5 mg PO DAILY Mental Health/Anxiety 09/20/22
clonazepam 0.5 mg tablet 1 mg PO HS Mental Health/Anxiety 09/20/22
polyethylene glycol 3350 17 gram/dose oral powder (Miralax) 4 g PO QPM Constipation 10/01/22
fluoxetine 20 mg capsule 20 mg PO DAILY 04/28/23
amlodipine 2.5 mg tablet (Norvasc) 2.5 mg PO DAILY #30 tabs 05/26/24
bisacodyl 5 mg tablet,delayed release (Dulcolax (bisacodyl)) 5 mg PO HS 05/26/24
divalproex 500 mg tablet,extended release 24 hr (Depakote ER) 500 mg PO BID 05/26/24
ergocalciferol (vitamin D2) 1,000 unit capsule 2,000 unit PO DAILY 05/26/24
glycopyrrolate 1 mg tablet 2 mg PO DAILY 05/26/24
levothyroxine 25 mcg tablet 25 mcg PO DAILY @ 0600 #30 tabs 05/26/24
oxycodone 20 mg tablet 20 mg PO DAILY 05/26/24
Home Medication Changes
Norvasc in 07/19
levothyroxine started
Latuda stopped and psych to evaluate changes
Pending Results: No
Total time spent discharging patient (in min): 41
[2024-05-26] MEDS: NSS 500 IV (14:50)
--- NOTE | 2024-05-26 14:57 | CM ---
Addendum entered by Liv Barlow 05/26/24 15:10:
[facility] [phone]
Original Note:
Met with pt at bedside
Pt reports she lives alone in a 2 story town home; 2 steps to enter, 14 steps to 2nd fl
Pt reports independent, ambulates with no device, drives
DME - rolling walker, single point cane
SNF - in past - unable to recall facility
HH - current with [facility]
Has ride home with friend
PCP - Dr Guzmán
Pharm - [facility]
Discussed [facility] letter
PT/OT - recs HH. Pt current with [facility]
Will send referral in [facility] for [facility]
Plan - home with [facility]
[2024-05-26 14:59] LABS: Glucose - Point of Care 105 mg/dl (70-99)
== END 2024-05-26 16:10 | disposition home or self-care (01) ==
LOC: 2 NORTH 04:26
PROVIDERS: ADMITTING PHYSICIAN Internal Medicine; ATTENDING PHYSICIAN Internal Medicine; EMERGENCY PHYSICIAN Emergency Medicine
DX: I95.1 Orthostatic hypotension (principal); E03.9 Hypothyroidism, unspecified; J44.89 Other specified chronic obstructive pulmonary disease; I10 Essential (primary) hypertension; I48.0 Paroxysmal atrial fibrillation; W18.39XA Other fall on same level, initial encounter; Y93.89 Activity, other specified; Y92.510 Bank as the place of occurrence of the external cause; F31.9 Bipolar disorder, unspecified; E78.00 Pure hypercholesterolemia, unspecified; R68.0 Hypothermia, not associated with low environmental temperature; G31.9 Degenerative disease of nervous system, unspecified; I49.8 Other specified cardiac arrhythmias; E86.0 Dehydration; R00.1 Bradycardia, unspecified; M79.7 Fibromyalgia; K21.9 Gastro-esophageal reflux disease without esophagitis; R79.89 Other specified abnormal findings of blood chemistry; G47.33 Obstructive sleep apnea (adult) (pediatric); E78.5 Hyperlipidemia, unspecified; I34.1 Nonrheumatic mitral (valve) prolapse; Z87.891 Personal history of nicotine dependence; Z90.49 Acquired absence of other specified parts of digestive tract; Z90.710 Acquired absence of both cervix and uterus; Z88.8 Allergy status to other drugs, medicaments and biological substances; Z88.1 Allergy status to other antibiotic agents; Z91.013 Allergy to seafood; Z79.01 Long term (current) use of anticoagulants; Z60.2 Problems related to living alone
CPT/HCPCS: 70450; 80048; 80053; 80164; 81003; 81015; 82533; 82962; 84439; 84443; 84484; 85025; 85027; 93005; 97162; 97166; 97530; 99285; G0378

== ENCOUNTER 2024-06-01 10:02 | Inpatient (IN) | payer MEDICARE, OTHER, SELFPAY ==
[2024-06-01] VITALS (31 sets, daily range): BP systolic 62–150; BP diastolic 47–95; PULSE 57–83; O2SAT 97; BMI 28.4
[2024-06-01 05:53] LABS: % Basophils 0.6 % (0-2); % Eosinophils 2.5 % (0-6); % Immature Granulocytes 0.6 % (0-0.5); % Lymphocytes 36.6 % (20.5-51.1); % Monocytes 8.9 % (1.7-9.3); % Neutrophils 50.8 % (42.2-75.2); Absolute Eosinophils 0.2 10^3/uL (0-0.7); Absolute Lymphocytes 2.5 10^3/uL (1.2-3.4); Absolute Monocytes 0.6 10^3/uL (0.1-0.6); Absolute Neutrophils 3.4 10^3/uL (1.4-6.5); Hematocrit 41.1 % (37.0-47.0); Hemoglobin 13.9 g/dL (12.0-16.0); Mean Corp Hgb Conc. 33.8 g/dL (33.0-37.0); Mean Corpuscular Hgb 32.3 pg (27.0-31.0); Mean Corpuscular Volume 95.6 fL (81.0-99.0); Mean Platelet Volume 10.6 fL (7.4-10.4); Nucleated Red Blood Cells % 0 %; Platelet Count 191 10^3/uL (130-400); Red Cell Dist. Width 14.6 % (11.5-14.5); White Blood Cell Count 6.8 10^3/uL (4.8-10.8)
[2024-06-01 06:06] LABS: ALT (SGPT) 20 U/L (0-35); AST (SGOT) 23 U/L (14-36); Albumin 4.1 g/dl (3.5-5.0); Alkaline Phosphatase 65 U/L (38-126); Blood Urea Nitrogen 17 mg/dl (7-17); Calcium 9.7 mg/dl (8.4-10.2); Carbon Dioxide 29 mmol/L (22-30); Chloride 101 mmol/L (98-107); Estimated Creatinine Clearance 47 ml/min; Glucose 107 mg/dl (70-99); Potassium 4.2 mmol/L (3.5-5.1); Sodium 141 mmol/L (135-145); Total Bilirubin 0.4 mg/dl (0.2-1.3); Total Protein 6.3 g/dl (6.3-8.2); eGFR 53.72
[2024-06-01 06:17] LABS: Troponin I < 0.012 ng/ml
--- NOTE | 2024-06-01 06:23 | ED.GENMED ---
History of Present Illness
General
Chief Complaint: Fainting Sensation
Source: patient
Exam Limitations: none
Time Seen by Provider: 06/01/24 06:02
Nursing documentation reviewed up to this point in time: agreed with
History of Present Illness
History of Present Illness:
Patient presents to ED secondary to sudden onset of dizziness and generalized weakness, when she woke up this morning and walking to restroom. Patient was able to hold onto a dresser and lowered herself to the floor. Due to significant weakness
and continual dizziness sensation, she felt too weak to stand up. Patient was able to reach for her phone and call 911. Patient denies headache. Denies blurred vision. Denies loss of sensation or focal weakness. Denies difficulty with speech.
Denies preceding chest palpitations, chest pain, shortness of breath, or nausea. Of note, patient was admitted to the hospital last week and was treated for similar symptoms, during which time she received diagnosis of orthostatic hypotension and
new onset hypothyroidism, and started on levothyroxine. In addition, during admission, her blood pressure medication dose was decreased. Patient states that she has not felt the same since she left the hospital, and has had continued decreased
appetite and weakness since being discharged home. Patient had a follow-up appointment with her primary care doctor 2 days ago, with blood pressure medication was discontinued due to low blood pressure. Patient also had been advised to follow-up
with her psychiatrist regarding her medications. She has an appointment with her psychiatrist later this afternoon.
Past History
Past History
ED Past Medical History: Arrthythmia (afib), COPD, GERD, HTN, Hypercholesterolemia, Psychiatric (Bipolar disorder) and Other (Fibromyalgia,' Vascular problems'); Negative Asthma or NIDDM
ED Past Surgical History: Appendectomy, Cholecystectomy, Gynecological (Total Hysterectomy) and Other (Clot removed form right leg, Numbness from knee up to thigh constant)
Social History
Tobacco: Former smoker
Alcohol: Occasional
Drug: None
Personal:
Living: alone
Employment: Employed
Family History
Family History: Other
Review of Systems
Review of Systems
Allergies reviewed?: Yes
All Other Systems: ROS reviewed and negative except as documented in HPI and ROS
Constitutional: Reports no symptoms
EENT: Reports no symptoms
Respiratory: Reports no symptoms; Denies trouble breathing
Cardiac: Reports no symptoms; Denies chest pain or syncope
ABD/GI: Reports no symptoms; Denies nausea or vomiting
Musculoskeletal: Reports no symptoms
Skin: Reports no symptoms
Neurological: Reports dizzy and weakness (Generalized weakness); Denies headache
Phy Exam
Physical Exam
Physical Exam:
Physical Exam
General: no apparent distress, not acutely ill. afebrile
Head: nc/at. eomi
Neck: supple. no meningeal signs.
Heart: s1/s2 regular rate and rhythm, no murmur. equal radial pulses.
Lungs: no acute respiratory distress. clear bilaterally
Abdomen: normal bowel sounds. not tender.
Neuro: alert and oriented. no focal neurological deficits
Skin: no rash
Psychiatric: well kept. interactive and cooperative
Extremities: no edema. no calf tenderness.
Course
Orders/Labs/Results
Orders:
Orders
06/01/24 05:32
Complete Blood Count/With Diff Urgent
Comprehensive Metabolic Panel Urgent
Magnesium Urgent
Comment: ADD ON
TSH Reflex To Free T4 Urgent
Comment: ADD ON
Troponin I Urgent
06/01/24 06:00
Electrocardiogram (*1) Urgent
Reason for Study: Syncope
06/01/24 06:03
Add On- LAB Urgent
Tests Added?: magnesium, TSH to reflex Free T4
06/01/24 06:04
Orthostatic VS- Treatment ONCE
06/01/24 07:00
0.9% Sodium Chloride 500 ml [Nss] 500 ml IV Wide Open mls/hr
06/01/24 07:50
0.9% Sodium Chloride 500 ml [Nss] 500 ml IV BOLUS
06/01/24 09:34
Admit/Transfer Patient As Directed
Co-Sign Provider:
Level of Care: Inpatient admission
Assign to:: Telemetry
Physician / Group: Masood
Diagnosis: Symptomatic hypotension
Reason for Telemetry: Syncope
Date to Stop Telemetry: 06/03/24
Time to Stop Telemetry: 11:00
Reason for Hospitalization: Above
Expected length of stay greater than two midnights?: Yes
ELOS- Estimated Length of Stay in days: 2
I certify the patient meets the requirements for IP care: Yes
06/01/24 09:35
PRN Pain Medication Management As Directed
May give lesser potent ordered pain med per pt: Yes
preference::
Protocol:: Medication orders for pain may be administered in a
manner that supports deferring to patient preference
when the pt is:
- Requesting an ordered lesser potent pain medication.
Least to most potent pain medications are defined
as: acetaminophen < NSAID < tramadol < opioids
(morphine, oxycodone, hydromorphone).
- Requesting a lesser dose of the same medication IF
ORDERED.
- Requesting a less intrusive route of administration
if both routes are prescribed by the provider (PO <
IV).
06/01/24 09:45
Code Status As Directed
Resuscitation Status: Full Code
06/01/24 Lunch
Regular
At Your Request: Full Participation
06/01/24 12:09
Clonazepam [Klonopin] 1 mg PO HS
06/01/24 12:48
Acetaminophen [Tylenol] 650 mg PO Q6HPRN PRN
Apixaban [Eliquis] 5 mg PO BID
Bupropion(24Hr)Extended Releas [WELLBUTRIN XL (24 hour extended release)] 150 mg PO DAILY
Celecoxib [Celebrex] 100 mg PO DAILY
Divalproex Extended Rel. 24 Hr [Depakote ER (24 Hr Release)] 250 mg PO BID
Levothyroxine [Synthroid] 25 mcg PO DAILY @ 0600
Pantoprazole [Protonix] 40 mg PO DAILY
06/01/24 12:48
Echo 2D MMode Color/Doppler Routine
Reason for Study: hypotension
Occupational Therapy Consult [Ot Eval And Treat] Routine
Physical Therapy Consult [Pt Eval And Treat] Routine
Activity Level: As Tolerated
06/01/24 13:37
Valproic Acid Level [Depakane] Routine
06/01/24 18:00
Polyethylene Glycol Powder [Miralax] 17 grams PO QPM
Rosuvastatin Calcium [Crestor] 40 mg PO QPM
06/02/24 06:00
BMP [Basic Metabolic Panel] IN AM
06/02/24 08:00
Fluoxetine HCl [Prozac] 40 mg PO DAILY
06/03/24 11:00
DC Protocol for Telemetry ONCE
Abnormal Lab Results
06/01/24
05:32
MCH 32.3 H pg
(27.0-31.0)
RDW 14.6 H %
(11.5-14.5)
MPV 10.6 H fL
(7.4-10.4)
Immature Gran % 0.6 H %
(0-0.5)
Creatinine 1.1 H mg/dL
(0.6-1.0)
Glucose 107 H mg/dl
(70-99)
06/01/24 05:32
06/01/24 05:32
Vital Signs
Initial and Last Documented VS:
Initial Vital Signs
Temp Pulse Resp BP Pulse Ox
97.7 F 57 21 121/64 96
06/01/24 05:17 06/01/24 05:17 06/01/24 05:17 06/01/24 05:17 06/01/24 05:17
Last Documented Vital Signs
Temp Pulse Resp BP Pulse Ox
98.5 F 61 16 139/82 100
06/01/24 12:57 06/01/24 12:57 06/01/24 12:57 06/01/24 12:57 06/01/24 12:57
MDM/Problems Addressed
MDM/Problems Addressed:
History and exam concerning for persistent orthostatic hypotension. As patient remains symptomatic despite IV fluid administration, patient will be admitted for further evaluation treatment.
*EKG
Interpreted by ED Provider?: Yes
EKG Intrepretation Date: 06/01/24
Heart Rate: 64
Rate: normal
Rhythm: sinus
Oil Trough: normal axis
Interval: normal interval
*Critical Care Note
Total Time (30-74mins, 75-104mins- exclusive of procedures): Not Applicable
ED Attending Note
-
Portions of this chart may have been created with voice recognition software.� Occasional wrong word or��sound alike� substitutions may have occurred due to the inherent limitations of voice recognition software.
Discharge Plan
Departure
Patient Disposition: Admit
Date of Disposition: 06/01/24
Time of Disposition: 08:19
Admit to: Telemetry
Presentation/result/management discussed w/ accepting MD/DO: Hospitalist
Discharge Problem:
Orthostatic hypotension, Near syncope
Interventions
Interventions:
*Risk Screen - Suicide Last Done: 06/01/24 05:17
*General Assessment Last Done: 06/01/24 05:17
*Neglect/Abuse Screening Last Done: 06/01/24 05:17
ED- Fall Risk Assessment Last Done: 06/01/24 05:17
*ED COVID-19 Vaccine History Last Done: 06/01/24 05:17
*Nursing Disposition Last Done: 06/01/24 13:18
ED- Cardiac Assessment Last Done: 06/01/24 05:50
ED- Neurological Assessment Last Done: 06/01/24 05:50
Discharge Date and Time
Discharge Date/Time: 06/01/24 13:19
[2024-06-01] MEDS: NSS 500 IV ×2 (06:27→08:37)
[2024-06-01 06:37] LABS: Magnesium 1.9 mg/dl (1.6-2.3)
[2024-06-01 07:28] LABS: TSH Reflex To Free T4 3.91 uIU/ml (0.47-4.68)
--- NOTE | 2024-06-01 09:49 | HPS.HSE ---
Family Physician
-
Family Physician: Shirley Marx MD
Chief Complaint
-
Persistent dizziness and falls
History of Present Illness
Patient is a 69-year-old female with history of paroxysmal atrial fibrillation, bipolar disorder on multiple psychotropic medications who was discharged from the hospital on 05/26 where patient was admitted for orthostatic hypotension and also found
to have hypothyroidism. Patient was recommended to stop Latuda, amlodipine. She was discharged home in stable condition. Although comes back today with complaints of feeling dizzy and weak since discharge from the hospital. Patient was seen by
primary physician who stopped all antihypertensive medications including Norvasc. She has pending appointment with psychiatrist in 2 days. Patient complains of feeling weak and dizzy almost passing out morning prior to admission. In further
questioning patient states that she keeps taking Latuda, because she was told that the dose needs to be tapered slowly. In addition she also takes clonidine which was not listed over last admission with the reasoning to avoid withdrawal from
Percocet which was also not listed over last admission.
She denies any fever, chills or any symptoms suggestive of infection. Her recent admission ID workup was unremarkable.
While in emergency room patient was found to be not in distress, although with systolic blood pressure in 70s improving with IV fluid bolus.
Medical History
Past Medical History
Past Medical History: Reports Arrhythmia (Paroxysmal atrial fibrillation), HTN and Hypothyroidism
Past Surgical History: Reports None
Social History
Tobacco: Non-smoker
Alcohol: None
Drug: None
Living: With Family
Family History
Family History: Not pertinent
Allergies / Home Medications
Allergies reflects when Allergies were last updated in [employer].
Home Medications with original date entered in [facility]
Allergy/Medication List:
Allergies
Allergy/AdvReac Type Severity Reaction Status Date / Time
bacitracin Allergy Rash Verified 06/01/24 05:16
[From Neosporin
([id number])]
crab Allergy Hives Verified 06/01/24 05:16
diphenhydramine Allergy rash and Verified 06/01/24 05:16
[From Benadryl] hyperactive/hyper/manic-adverse
reaction
lamotrigine [From Lamictal] Allergy Rash Verified 06/01/24 05:16
neomycin Allergy Rash Verified 06/01/24 05:16
[From Neosporin
([id number])]
polymyxin B Allergy Rash Verified 06/01/24 05:16
[From Neosporin
([id number])]
Home Medications
pantoprazole 40 mg tablet,delayed release 40 mg PO DAILY Gastrointestinal issue 09/25/21
apixaban 5 mg tablet (Eliquis) 5 mg PO BID Blood Clot Prevention/Tx 09/14/22
rosuvastatin 40 mg tablet (Crestor) 40 mg PO QPM High Cholesterol 09/14/22
clonazepam 0.5 mg tablet 0.5 mg PO DAILY Mental Health/Anxiety 09/20/22
clonazepam 0.5 mg tablet 1 mg PO HS Mental Health/Anxiety 09/20/22
polyethylene glycol 3350 17 gram/dose oral powder (Miralax) 17 g PO QPM Constipation 10/01/22
fluoxetine 20 mg capsule 40 mg PO DAILY Depression 04/28/23
acetaminophen 325 mg tablet (Tylenol) 650 mg PO Q6HPRN PRN mild pain 06/01/24
bupropion HCl 150 mg 24 hr tablet, extended release (Wellbutrin XL) 150 mg PO DAILY 06/01/24
celecoxib 100 mg capsule (Celebrex) 100 mg PO DAILY 06/01/24
clonidine HCl 0.1 mg tablet 0.2 mg PO HS 06/01/24
divalproex 250 mg tablet,extended release 24 hr 250 mg PO BID 06/01/24
finasteride 5 mg tablet 5 mg PO DAILY hair growth 06/01/24
levothyroxine 25 mcg tablet 25 mcg PO DAILY 06/01/24
lurasidone 120 mg tablet (Latuda) 120 mg PO QPM 06/01/24
olanzapine 10 mg tablet 10 mg PO HS 06/01/24
Review of Systems
-
A 12 point ROS was completed and negative except as noted: Yes
Physical Exam
Vital Signs
Vital Signs
Temp Pulse Resp BP Pulse Ox
97.7 F 59 16 105/91 97
06/01/24 05:17 06/01/24 08:43 06/01/24 08:43 06/01/24 08:43 06/01/24 08:43
Physical Exam
General: Well Developed, Well Nourished and No Apparent Distress
HEENT: NormoCephalic, Moist mucous membranes and Atraumatic
Respiratory: Clear
Cardiac: S1/S2 and Regular Rhythm; No Murmur or Rub
GI: Soft, Non Tender, Non Distended and Normal Bowel Sounds; No Organomegaly
Rectal: Deferred by Provider
Musculoskeletal: No Clubbing, No Cyanosis and No Edema
Skin: No Rash
Neuro: Awake, Alert, Oriented, AO x 3 and Nonfocal/grossly intact
Laboratory Results
-
06/01/24 05:32
06/01/24 05:32
Laboratory Results
Total Bilirubin 0.4 mg/dl (0.2-1.3) 06/01/24 05:32
AST 23 U/L (14-36) 06/01/24 05:32
ALT 20 U/L (0-35) 06/01/24 05:32
Alkaline Phosphatase 65 U/L (38-126) 06/01/24 05:32
Troponin I < 0.012 ng/ml 06/01/24 05:32
Impression/Plan
-
IMPRESSION:
Symptomatic orthostatic hypotension.
Other conditions:
Hypothyroidism
Bipolar disorder
Paroxysmal atrial fibrillation on anticoagulation with Eliquis
Obstructive sleep apnea
PLAN:
Symptomatic orthostatic hypotension responding to IV fluid bolus
Suspect polypharmacy. Patient with multiple medications with side effect of hypotension.
Stop olanzapine, Latuda, clonidine.
Continue IV fluid bolus.
Physical therapy evaluation.
Check echocardiogram for completeness.
Essential hypertension
Currently hypotensive.
Amlodipine recently discontinued.
Patient states taking clonidine 0.2 mg at bedtime to avoid withdrawal from Percocet?
Suspect opiate misuse disorder.
Oxycodone 10 mg prescription filled on 04/11.
Not listed on admission medication list.
Patient states taking it for osteoarthritis
Monitor closely off oxycodone given significant hypotension. Hopefully will be able to avoid and weaned off.
Bipolar disorder.
Preadmission regimen listed with olanzapine, Latuda, bupropion, fluoxetine, valproic acid, clonazepam
Check valproic acid level
Continue Wellbutrin, fluoxetine, clonazepam.
Hold olanzapine and Latuda
Psychiatry consultation to optimize psychotropic regimen.
Paroxysmal atrial fibrillation
Currently in normal sinus rhythm
Continue telemetry monitoring.
Continue anticoagulation with Eliquis
Obstructive sleep apnea
Patient may use her own BiPAP.
Hypothyroidism
Continue levothyroxine
Full code
DVT prophylaxis with Eliquis.
[2024-06-01] MEDS: KLONOPIN 1 MG PO ×2 (12:26→21:48)
[2024-06-01] MEDS: TYLENOL 650 MG PO ×2 (13:15→20:52)
[2024-06-01] MEDS: DEPAKOTE ER (24 HR RELEASE) 250 MG PO ×2 (13:40→20:51)
[2024-06-01] MEDS: SYNTHROID 25 MCG PO (13:40)
[2024-06-01] MEDS: CELEBREX 100 MG PO (13:40)
[2024-06-01] MEDS: PROTONIX 40 MG PO (13:40)
[2024-06-01] MEDS: ELIQUIS 5 MG PO ×2 (13:44→20:37)
[2024-06-01] MEDS: WELLBUTRIN XL (24 hour extended release) 150 MG PO (13:44)
[2024-06-01 14:12] LABS: Depakane 80.5 ug/ml (50.0-120.0)
[2024-06-01] MEDS: CRESTOR 40 MG PO (18:09)
[2024-06-01] MEDS: MIRALAX 17 GRAMS PO (18:09)
[2024-06-02] VITALS (7 sets, daily range): BP systolic 110–152; BP diastolic 71–93; PULSE 65–96
[2024-06-02] MEDS: SYNTHROID 25 MCG PO (04:50)
[2024-06-02] MEDS: PROZAC 40 MG PO (08:04)
[2024-06-02] MEDS: PROTONIX 40 MG PO (08:04)
[2024-06-02] MEDS: ELIQUIS 5 MG PO ×2 (08:04→20:04)
[2024-06-02] MEDS: WELLBUTRIN XL (24 hour extended release) 150 MG PO (08:04)
[2024-06-02] MEDS: DEPAKOTE ER (24 HR RELEASE) 250 MG PO ×2 (08:05→20:04)
[2024-06-02] MEDS: CELEBREX PO (08:06)
[2024-06-02] MEDS: TYLENOL 650 MG PO (08:13)
[2024-06-02 08:21] LABS: Blood Urea Nitrogen 16 mg/dl (7-17); Calcium 9.3 mg/dl (8.4-10.2); Carbon Dioxide 29 mmol/L (22-30); Chloride 100 mmol/L (98-107); Estimated Creatinine Clearance 57 ml/min; Glucose 109 mg/dl (70-99); Potassium 3.9 mmol/L (3.5-5.1); Sodium 140 mmol/L (135-145); eGFR > 60.00
--- NOTE | 2024-06-02 10:16 | W.PN.HOSP.TC ---
Today's Communication/Plan
-
repeat orthostats now
follow up Psychiatry recommendations
Assessment / Plan
Assessment / Plan
IMPRESSION:
Symptomatic orthostatic hypotension.
Other conditions:
Hypothyroidism
Bipolar disorder
Paroxysmal atrial fibrillation on anticoagulation with Eliquis
Obstructive sleep apnea
TTE 06/01/24
CONCLUSIONS
Normal biventricular size and systolic function without regional wall motion
abnormality. LVEF 60-65%.
Mild mitral regurgitation.
Compared to prior echocardiogram on 07/14/2022, mitral and tricuspid
regurgitation have decreased in severity. Mitral regurgitation was previously
moderate (now mild) and tricuspid regurgitation was previously mild (now
trace).
Indications:
hypotension
PLAN:
Symptomatic orthostatic hypotension responding to IV fluid bolus
Suspect polypharmacy. Patient with multiple medications with side effect of hypotension.
Stop olanzapine, Latuda, clonidine.
Continue IV fluid bolus.
Physical therapy evaluation.
TTE results above
Essential hypertension
Currently hypotensive.
Amlodipine recently discontinued.
Patient states taking clonidine 0.2 mg at bedtime to avoid withdrawal from Percocet? - stopped - patient okay stopping this
Suspect opiate misuse disorder.
Oxycodone 10 mg prescription filled on 04/11.
Not listed on admission medication list.
Patient states taking it for osteoarthritis
Monitor closely off oxycodone given significant hypotension. Hopefully will be able to avoid and weaned off.
Bipolar disorder.
Preadmission regimen listed with olanzapine, Latuda, bupropion, fluoxetine, valproic acid, clonazepam
Check valproic acid level
Continue Wellbutrin, fluoxetine, clonazepam.
Hold olanzapine and Latuda
Psychiatry consultation to optimize psychotropic regimen. - patient worried about stopping antipsychotics
Paroxysmal atrial fibrillation
Currently in normal sinus rhythm
Continue telemetry monitoring.
Continue anticoagulation with Eliquis
Obstructive sleep apnea
Patient may use her own BiPAP.
Hypothyroidism
Continue levothyroxine
Full code
DVT prophylaxis with Eliquis.
Anticipated Discharge: 24 - 48 hours
Subjective/Interval History
-
Date of Service: June 02, 2024
no dizziness this morning
worried about stopping Latuda because of history of psychotic episodes
Objective Data
-
Labs:
Laboratory Results
06/02/24
07:06
Sodium 140
Potassium 3.9
Chloride 100
Carbon Dioxide 29
BUN 16
Creatinine 0.9
Glucose 109 H
Calcium 9.3
Vital Signs:
Vital Signs
Temp Pulse Resp BP Pulse Ox
98.3 F 60 16 136/72 98
06/02/24 07:10 06/02/24 07:10 06/02/24 07:10 06/02/24 07:10 06/02/24 07:10
I&O
06/01/24 06/02/24 06/03/24
06:59 06:59 06:59
Intake Total 1440 / 1440
Balance 1440 / 1440
Review of Systems
-
History Source: Patient
All other systems: Reviewed and negative
Physical Exam
-
General: No Apparent Distress and Conversant
HEENT: PERRLA
Respiratory: Clear to Auscultation; Negative Wheezes
Cardiac: Regular Rhythm and S1/S2
GI: Soft and Nontender
Musculoskeletal: No Edema
Skin: Warm and Dry; Negative Rash
Neuro: AO x 3
Psych: Calm
Data Reviewed
-
Diagnostic Radiology: Report Reviewed by me
Labs: Labs Reviewed by me
[2024-06-02] MEDS: NSS 500 IV (11:20)
[2024-06-02] MEDS: FLUSH (NSS) 1 FLUSH IV (11:21)
--- NOTE | 2024-06-02 11:43 | CM ---
Patient seen bedside, initial assessment completed. Patient resides independently in a multiple story home, two steps to enter. Patient has two rolling walkers and two canes, is current with [facility]. Patient reports she has been to SNF in the past,
cannot remember which facility. Patient confirms PCP Shirley Marx, pharmacy [facility] in [place], confirms prescription coverage. Patient denies insecurities at home. CM discussed PT recommendations of VN versus SNF, patient
declining SNF and would like to return with [facility]. CM will continue to follow for all discharge planning needs.
Plan; home with continuance of [facility], declining SNF.
[2024-06-02] MEDS: LATUDA 80 MG PO (17:01)
[2024-06-02] MEDS: MIRALAX 17 GRAMS PO (17:02)
[2024-06-02] MEDS: CRESTOR 40 MG PO (17:02)
--- NOTE | 2024-06-02 17:11 | CON.MD ---
Addendum entered and electronically signed by Kiley Coy MD 06/02/24 17:36:
prozac dose 40mg not 20mg
Original Note:
Consultation - Medical
-
69 yr old F w/ PMH of bipolar d/o, hypothyroidism, paroxysmal Afib, DAVID on BiPap - presenting with symptomatic orthostatic hypotension with concerns of polypharmacy contributing to this. Psychiatry consulted to help manage psychotropics in this
context.
Pt reports hx of bipolar disorder, with first episode of psychosis about 30 yrs ago after she had first child. Recounts still remembering this episode as 'psychosis is terrifying'. Had post depression at the time which progressed to delusions
and distress, with possibly mixed features at the time. Describes both keiko & depressive periods as typical - when depressed with low mood, anhedonia, amotivation, when manic increased energy, lability, decreased need for sleep. Currently
experiencing symptoms of keiko starting (labile at times, irritable at times, racing thoughts, jiterry/restless).
Sees Dr. Tang at [facility], seeing him for medication management for many years. Inpatient about 30 yrs ago (post psychosis).\\
Prescribed the following: Wellbutrin SR 200mg, clonazepam 0.5mg AM/1mg HS, fluoxetine 20mg, depakote 500mg HS, clonidine HS, zyprexa 5mg, lurasidone 120mg. Was told by her outpatient psychiatrist to stop zyprexa and was told that they will trial
decreasing the lurasidone dose after her next f/u apt (Tuesday06/04/24). Pt is worried as has not taken lurasidone since admission and is noticing manic sxs (see above, difficult to truly gauge sxs vs w/d).
Of note, there is concern of possible medication misuse, however has been agreeable to all recommendations (though is hopeful can restart lurasidone).
Bipolar d/o
MSE: cooperative,pleasant,speech is normal rate & rhythm,,mood is 'up and down', affect is appropriate though at times slightly irritable or anxious, thought process is logical & goal directed, thought content: denies SI/HI/AVH/delusions. AAOx3.
Memory not formally tested. Insight fair. Judgement fair
1. Ordered lurasidone 80mg HS w/ now dose - much less likely to cause orthostasis than zyprexa/olanzapine which was also just recently stopped. Stopping all antipsychotics would place pt at high risk of mood decompensation and psychosis. She has an
outpatient psychiatrist with whom she will discuss further changes if they're warranted.
2. Agree with d/c zyprexa & clonidine
3. Continue psychotropics otherwise
4. Check depakote level & LFTs
[2024-06-02] MEDS: KLONOPIN 1 MG PO (21:17)
[2024-06-02] MEDS: DESYREL 25 MG PO (22:04)
[2024-06-03] VITALS (8 sets, daily range): BP systolic 122–159; BP diastolic 72–97; PULSE 68–94; BMI 27.8
[2024-06-03] MEDS: TYLENOL 650 MG PO ×2 (03:22→16:30)
[2024-06-03] MEDS: SYNTHROID 25 MCG PO (06:27)
[2024-06-03] MEDS: ANESTHETIC LOZENGE 1 LOZENGE PO ×2 (06:54→20:16)
[2024-06-03] MEDS: PROZAC 40 MG PO (09:12)
[2024-06-03] MEDS: DEPAKOTE ER (24 HR RELEASE) 250 MG PO ×2 (09:12→20:16)
[2024-06-03] MEDS: CELEBREX PO (09:12)
[2024-06-03] MEDS: WELLBUTRIN XL (24 hour extended release) 150 MG PO (09:12)
[2024-06-03] MEDS: PROTONIX 40 MG PO (09:13)
[2024-06-03] MEDS: ELIQUIS 5 MG PO ×2 (09:13→20:16)
--- NOTE | 2024-06-03 09:24 | W.PN.HOSP.TC ---
Today's Communication/Plan
-
F/U further Psychiatry recommendations
Assessment / Plan
Assessment / Plan
IMPRESSION:
Symptomatic orthostatic hypotension.
Other conditions:
Hypothyroidism
Bipolar disorder
Paroxysmal atrial fibrillation on anticoagulation with Eliquis
Obstructive sleep apnea
TTE 06/01/24
CONCLUSIONS
Normal biventricular size and systolic function without regional wall motion
abnormality. LVEF 60-65%.
Mild mitral regurgitation.
Compared to prior echocardiogram on 07/14/2022, mitral and tricuspid
regurgitation have decreased in severity. Mitral regurgitation was previously
moderate (now mild) and tricuspid regurgitation was previously mild (now
trace).
Indications:
hypotension
PLAN:
Symptomatic orthostatic hypotension
Suspect polypharmacy. Patient with multiple medications with side effect of hypotension.
Olanzapine and Clonidine Stopped; Latuda resumed at lower dosing.
orthostatic hypotension improved (still present yest but patient less symptomatic) but patient now very restless; states hasn't slept (see below)
Physical therapy evaluation - repeat today with orthostats
TTE results above
Bipolar disorder.
Preadmission regimen listed with olanzapine, Latuda, bupropion, fluoxetine, valproic acid, clonazepam
Check valproic acid level - WNL; liver enzymes normal
Continue Wellbutrin, fluoxetine, clonazepam.
Hold olanzapine
Latuda resumed at half dose
F/U further Psychiatry recommendations as patient states she hasn't slept and she feels very anxious. Asking about lower dose Zyprexa.
Essential hypertension
Currently hypotensive.
Amlodipine recently discontinued.
Patient states taking clonidine 0.2 mg at bedtime to avoid withdrawal from Percocet? - stopped - patient okay stopping this
Suspect opiate misuse disorder.
Oxycodone 10 mg prescription filled on 04/11.
Not listed on admission medication list.
Patient states taking it for osteoarthritis
Monitor closely off oxycodone given significant hypotension. Hopefully will be able to avoid and weaned off.
Paroxysmal atrial fibrillation
Currently in normal sinus rhythm
Continue telemetry monitoring.
Continue anticoagulation with Eliquis
Obstructive sleep apnea
Patient may use her own BiPAP.
Hypothyroidism
Continue levothyroxine
Full code
DVT prophylaxis with Eliquis.
Anticipated Discharge: 24 - 48 hours
Subjective/Interval History
-
Date of Service: June 03, 2024
she is feeling unwell
hasn't slept in 2 days she said. said she can't sleep without Zyprexa
Objective Data
-
Vital Signs:
Vital Signs
Temp Pulse Resp BP Pulse Ox
98.9 F 77 19 149/78 95
06/03/24 08:00 06/03/24 08:00 06/03/24 08:00 06/03/24 08:00 06/03/24 08:00
I&O
06/02/24 06/03/24 06/04/24
06:59 06:59 06:59
Intake Total 1440 / 1440 1560 / 1560
Balance 1440 / 1440 1560 / 1560
Review of Systems
-
History Source: Patient
All other systems: Reviewed and negative
Physical Exam
-
General: No Apparent Distress and Conversant
HEENT: PERRLA
Respiratory: Clear to Auscultation; Negative Wheezes
Cardiac: Regular Rhythm and S1/S2
GI: Soft and Nontender
Musculoskeletal: No Edema
Skin: Warm and Dry; Negative Rash
Neuro: AO x 3
Psych: Anxious
Data Reviewed
-
Diagnostic Radiology: Report Reviewed by me
Labs: Labs Reviewed by me
--- NOTE | 2024-06-03 12:01 | W.PN.UPDATE ---
Update Note
Progress Note Update
Chart reviewed- pt seen
Pt c/o mounting anxiety since she was taken off Zyprexa, which she has been for 30 years. 'When I take the Zyprexa it takes away my anxiety and I can sleep through the night.' She says she hasn't slept is several nights.
She is eager to feel better, and has been in psychiatric treatment for Bipolar Affective Disorder for 30 years. I gave her positive feedback for being an active participant in her mental health care.
I understand that Zyprexa was stopped bec of concerns about hypotension- I reassured her we will check for orthostasis after she takes the medication. He outpatient psychiatrist is Dr Buddy Tang.
[facility]- Zyprexa 5 mg now
Zyprexa 10 mg HS
[2024-06-03] MEDS: ZYPREXA 5 MG PO (12:14)
--- NOTE | 2024-06-03 13:00 | PTCARENOTE ---
Pt fell quickly asleep after taking her zyprexia. We will check ortho VSS when she awakens. Will cont to monitor.
[2024-06-03] MEDS: MIRALAX 17 GRAMS PO (17:02)
[2024-06-03] MEDS: CRESTOR 40 MG PO (17:02)
[2024-06-03] MEDS: LATUDA 80 MG PO (17:07)
[2024-06-03] MEDS: KLONOPIN 1 MG PO (21:23)
[2024-06-03] MEDS: ZYPREXA 10 MG PO (21:23)
[2024-06-03] MEDS: DESYREL PO (21:23)
[2024-06-03] MEDS: NAPROSYN 250 MG PO (21:24)
[2024-06-04 03:19] VITALS: BP 148/78
[2024-06-04] MEDS: SYNTHROID 25 MCG PO (05:13)
[2024-06-04 05:22] VITALS: BMI 28.0
[2024-06-04 07:10] VITALS: BP 163/86
[2024-06-04] MEDS: ELIQUIS 5 MG PO (09:35)
[2024-06-04] MEDS: PROTONIX 40 MG PO (09:35)
[2024-06-04] MEDS: WELLBUTRIN XL (24 hour extended release) 150 MG PO (09:35)
[2024-06-04] MEDS: PROZAC 40 MG PO (09:36)
[2024-06-04] MEDS: DEPAKOTE ER (24 HR RELEASE) 250 MG PO (09:36)
[2024-06-04] MEDS: CELEBREX 100 MG PO (09:37)
[2024-06-04 09:40] VITALS: BP 145/91; BP 156/97; BP 187/79; PULSE 66; PULSE 71; PULSE 96; O2SAT 98
[2024-06-04 11:10] VITALS: BP 140/73
--- NOTE | 2024-06-04 11:52 | W.DS.TRANS ---
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
-
Discharge Instructions:
Discharge Diagnosis/Procedures Orthostatic hypotension.
Diet Regular
Instructions:
Stand-Alone Forms:
Changes to Home Medications: Yes
Discharge Medications:
DC Medications w/original date entered in [employer]
pantoprazole 40 mg tablet,delayed release 40 mg PO DAILY Gastrointestinal issue 09/25/21
apixaban 5 mg tablet (Eliquis) 5 mg PO BID Blood Clot Prevention/Tx 09/14/22
rosuvastatin 40 mg tablet (Crestor) 40 mg PO QPM High Cholesterol 09/14/22
clonazepam 0.5 mg tablet 1 mg PO HS Mental Health/Anxiety 09/20/22
polyethylene glycol 3350 17 gram/dose oral powder (Miralax) 17 g PO QPM Constipation 10/01/22
fluoxetine 20 mg capsule 40 mg PO DAILY Depression 04/28/23
acetaminophen 325 mg tablet (Tylenol) 650 mg PO Q6HPRN PRN mild pain 06/01/24
bupropion HCl 150 mg 24 hr tablet, extended release (Wellbutrin XL) 150 mg PO DAILY Depression 06/01/24
celecoxib 100 mg capsule (Celebrex) 100 mg PO DAILY Anti-Inflammatory 06/01/24
divalproex 250 mg tablet,extended release 24 hr 250 mg PO BID Mental Health/Anxiety 06/01/24
levothyroxine 25 mcg tablet 25 mcg PO DAILY@06 Thyroid 06/01/24
olanzapine 10 mg tablet 10 mg PO HS Mental Health/Anxiety 06/01/24
amlodipine 2.5 mg tablet (Norvasc) 2.5 mg PO DAILY #30 tabs 06/04/24
lurasidone 80 mg tablet 80 mg PO QPM #30 tabs 06/04/24
Home Medication Changes
Latuda decreased
Clonidine stopped
Oxycodone stopped.
Pending Results: No
--- NOTE | 2024-06-04 12:27 | CM ---
Patient seen at bedside.
tt hospitalist for case management consult for [facility] in [facility]
referral placed for [facility] in [facility]. (contract with [facility])
Spoke with Yadira tolbert at [facility]
PLAN: home, with [facility] Fax #: [phone]
--- NOTE | 2024-06-04 13:10 | PTCARENOTE ---
pt educated on plan of care for the day and pt verbalized understanding. pt ambulating to br and tolerating well. pt offers no complaints at this time. pt educated on d/c planning and verbalized understanding. call de anda within reach.
[2024-06-04 15:10] VITALS: BP 156/87
--- NOTE | 2024-06-04 16:02 | PTCARENOTE ---
d/c instructions read to pt and pt verbalized understanding. iv and tele removed. pt left with belongings from room and instructions. pt left via wheelchair with staff member.
== END 2024-06-04 16:08 | disposition home health service (06) | DRG 312 ==
LOC: 2 NORTH 10:02
PROVIDERS: Student in an Organized Health Care Education/Training Program; ADMITTING PHYSICIAN Internal Medicine; CONSULT PHYSICIAN Psychiatry & Neurology Psychiatry; EMERGENCY PHYSICIAN Emergency Medicine; FAMILY PHYSICIAN Student in an Organized Health Care Education/Training Program
DX: I95.2 Hypotension due to drugs (principal); T50.915A Adverse effect of multiple unspecified drugs, medicaments and biological substances, initial encounter; E03.9 Hypothyroidism, unspecified; F31.9 Bipolar disorder, unspecified; I10 Essential (primary) hypertension; J44.9 Chronic obstructive pulmonary disease, unspecified; F11.90 Opioid use, unspecified, uncomplicated; E78.00 Pure hypercholesterolemia, unspecified; G47.33 Obstructive sleep apnea (adult) (pediatric); I48.0 Paroxysmal atrial fibrillation; K21.9 Gastro-esophageal reflux disease without esophagitis; M19.90 Unspecified osteoarthritis, unspecified site; M79.7 Fibromyalgia; Z79.01 Long term (current) use of anticoagulants; Z79.899 Other long term (current) drug therapy; Z87.891 Personal history of nicotine dependence; Z90.710 Acquired absence of both cervix and uterus; Z91.81 History of falling
CPT/HCPCS: 80048; 80053; 80164; 83735; 84443; 84484; 85025; 93005; 93306; 96360; 97116; 97162; 97166; 97530; 99285